=== PATIENT | female | born 1995 | race American Indian/Alaskan Native ===

== ENCOUNTER 2020-08-01 22:39 | Emergency (ER) | payer SELFPAY ==
[2020-08-01 23:24] VITALS: BP 137/66
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
[2020-08-02] MEDS ORDERED: ACETAMINOPHEN 325 MG TAB PO ONE (03:49)
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
== END 2020-08-02 04:03 | disposition home or self-care (01) ==
LOC: ED 22:39
DX: O9A.211 Injury, poisoning and certain other consequences of external causes complicating pregnancy, first trimester (principal); S00.83XA Contusion of other part of head, initial encounter; O26.891 Other specified pregnancy related conditions, first trimester; R10.2 Pelvic and perineal pain; Z3A.13 13 weeks gestation of pregnancy; Y08.89XA Assault by other specified means, initial encounter; Y93.89 Activity, other specified; Y92.89 Other specified places as the place of occurrence of the external cause; Y99.8 Other external cause status
CPT/HCPCS: 36415; 76801; 84703